=== PATIENT | female | born 1980 | race Caucasian/White ===

== ENCOUNTER 2020-02-09 07:24 | Emergency (ER) | payer SELFPAY ==
--- NOTE | 2020-02-09 07:29 | PC.NURSE ---
pt. cannot state why she is here except she needs her meds; pt. denies being here before- and name given not in system; pt. denies having in ID with her. Pt. first stated she had a PMD, but cannot provide his name; pt. then told [facility] that she didn't have a PMD, then changed her statement she did have a PMD but hasn't seem him to refill her meds . Pt. denies physical sx, when asked again to give a reason for being here and stated COVID - gave pt. a mask. Pt. then stated but not really
[2020-02-09 07:30] VITALS: BP 138/93; PULSE 93; RESP 16; TEMP 36.4; O2SAT 100
--- NOTE | 2020-02-09 08:16 | ED_ITS ---
HPI - Recheck/Abnormal Lab/Rx General Chief Complaint: Recheck/Abnormal Lab/Rx Stated Complaint: get back on my medication Time Seen by Provider: 02/09/20 07:34 History of Present Illness HPI narrative: Pt is a 39 y/o CF who presents for a med refill. Has not taken her psych meds for 2 months. Unsure as to the rx name and dosage. No SI/HI. Last heroin use yesterday. Does not want help for that. No Denies hearing voices or seeing things that are not there. Related Data Home Medications Medication Instructions Recorded Confirmed Unable to Obtain Home Medications 02/09/20 02/09/20 Allergies Allergy/AdvReac Type Severity Reaction Status Date / Time tramadol AdvReac Seizure Verified 02/09/20 07:58 trazodone AdvReac Seizure Verified 02/09/20 07:58 Review of Systems Constitutional: Constitutional: Denies chills, Denies fever(s) and Denies weakness Gastrointestinal: Gastrointestinal: Denies abdominal pain, Denies nausea and Denies vomiting Psychiatric: Psychiatric: Reports anxiety, Denies depression, Denies homicidal ideation and Denies suicidal ideation PMFSH Past Medical History Medical History (Updated 02/09/20 @ 08:25 by Jon Anthony MD) Bipolar disorder Surgical History Surgical History (Updated 02/09/20 @ 08:25 by Jon Anthony MD) No pertinent past surgical history Social History Social History (Updated 02/09/20 @ 08:25 by Jon Anthony MD) Substance use type: heroin, amphetamines and IV drugs Exam Narrative: Exam Narrative: GENERAL: Well-appearing, well-nourished, and in no acute distress. HEAD: Normocephalic, atraumatic. CHEST: Clear to auscultation. No respiratory distress. HEART: Regular rate and rhythm. Normal peripheral pulses. ABDOMEN: Soft, nontender, nondistended. EXTREMITIES: Normal range of motion. No edema. NEURO: Alert and oriented x3. PSYCH: Normal mood and affect. Course Course Emergency Course: No record of medications in old system. Pt doesnt know what she takes. Will give PCP referral. Vital Signs Vital signs: Vital Signs Temperature 97.5 F L 02/09/20 07:30 Pulse Rate 93 02/09/20 07:30 Respiratory Rate 16 02/09/20 07:30 Blood Pressure 138/93 H 02/09/20 07:30 Pulse Oximetry 100 02/09/20 07:30 Temperature 97.5 F L 02/09/20 07:30 Pulse Rate 93 02/09/20 07:30 Respiratory Rate 16 02/09/20 07:30 Blood Pressure 138/93 H 02/09/20 07:30 Pulse Oximetry 100 02/09/20 07:30 Discharge Plan Discharge Clinical Impression: Encounter for medication refill Patient Disposition: Home, Self-Care Condition: Stable Instructions: Normal Exam (ED) Additional Instructions: Return to the ER if you have fever over 101F, you cannot keep down food/water, you want to harm yourself/others, or you have other concerns. Prescriptions: No Action Unable to Obtain Home Medications RF: 0 Follow-up/Referrals: Alvaro Barclay MD [Physician] - 1 Week PHYSICIAN,INFORMATION SYSTEMS PROFESSOR [Non-Staff] - Discharge Date/Time: 02/09/20 08:25
== END 2020-02-09 08:25 | disposition home or self-care (01) ==
PROVIDERS: Emergency Provider Emergency Medicine
DX: F31.9 Bipolar disorder, unspecified (principal)
CPT/HCPCS: 99281